=== PATIENT | male | born 1980 | race African-American/Black ===

== ENCOUNTER 2020-04-11 12:06 | Emergency (ER) | payer SELFPAY ==
[~2020-04-11] VITALS: Ht 180.3 cm; Wt 88.5 kg
[2020-04-11 12:10] VITALS: BP_SYST 169
--- NOTE | 2020-04-11 12:10 | NUR ---
Patient to ER bed 06 to gown for evaluation. Side rails up. Report given to ADITYA PRATHER.
--- NOTE | 2020-04-11 12:20 | NUR ---
Pt walked in to ER with c/o ingrown hair to testicle. V/S stable, pt is afebrile. Currently sitting at bedside, will continue to monitor.
--- NOTE | 2020-04-11 12:30 | NUR ---
ER Dr. Shelton at bedside examining patient.
[2020-04-11 13:15] VITALS: BP_SYST 169
--- NOTE | 2020-04-11 13:15 | NUR ---
Patient given written and verbal discharge instructions and verbalizes understanding. ER MD discussed with patient the results and treatment provided. Patient in stable condition. ID arm band removed. Rx of Keflex and Motrin given. Patient educated on pain management and to follow up with PMD. Pain Scale 0. Opportunity for questions provided and answered. Medication side effect fact sheet provided.
== END 2020-04-11 13:15 | disposition home or self-care (01) ==
LOC: SED 12:06
DX: N49.2 Inflammatory disorders of scrotum (principal); F17.200 Nicotine dependence, unspecified, uncomplicated
CPT/HCPCS: 99283; J7030